=== PATIENT | female | born 1960 | race Caucasian/White ===

== ENCOUNTER → 2021-02-05 18:54 | Outpatient (CLI) | payer OTHER, SELFPAY ==
--- NOTE | 2021-02-05 19:01 | DI.MRI.S_ITS ---
PROCEDURE: MR SHOULDER RT WO CON INDICATIONS: PAIN IN LEFT SHOULDER CAPSULITIS OF RIGHT SHOULDER TECHNIQUE: Noncontrast oblique coronal T2 fast spin echo with fat saturation, oblique sagittal T1 spin echo and T2 fast spin echo with fat saturation, axial T1 spin echo and T2 fast spin echo with fat saturation through the shoulder. COMPARISON: None. FINDINGS: Image quality: Excellent. Rotator cuff: Moderate diffuse T2 signal elevation within the supraspinatus and infraspinatus tendons at the humeral insertion sites, indicating tendinopathy. Superimposed low-grade partial-thickness intrasubstance tearing of the anterior/mid supraspinatus tendon at the humeral insertion site. There is full-thickness tearing of the mid and posterior supraspinatus tendon the humeral insertion site extending to the musculotendinous junction, measuring roughly 15 mm anteroposterior. There is low-grade partial-thickness intrasubstance tearing of the anterior, mid, and posterior infraspinatus tendon at the humeral insertion site extending to the musculotendinous junction. Teres minor tendon is intact. Moderate T2 signal elevation within the subscapularis tendon at the humeral insertion site extending the musculotendinous junction is present, indicating tendinopathy. Superimposed low-grade partial-thickness articular surface and intrasubstance tears of the mid and upper subscapularis tendon at the humeral insertion site, extending to the musculotendinous junction. No significant rotator cuff atrophy. Bones and bursae: No bone marrow contusions or fractures. Moderate acromioclavicular joint degeneration. The acromion demonstrates conventional anatomy, without an os acromiale. No pathologic subacromial-subdeltoid or subcoracoid bursal fluid is present. Capsule and soft tissues: There is tearing of the posterosuperior and mid posterior labrum. The long head of the biceps tendon demonstrates normal location and morphology. The rotator interval appears normal, without fibrosis. The coracohumeral ligament is normal in thickness. IMPRESSION: 1. Acromioclavicular joint osteoarthritis. 2. Tendinopathy of the supraspinatus, infraspinatus, and subscapularis tendons. Superimposed partial-thickness and full-thickness tearing as described above. 3. Posterior labral tearing. Dictated by: Bib Segundo M.D. on 02/08/2021 at 8:41 Approved by: Bib Segundo M.D. on 02/08/2021 at 9:02
--- NOTE | 2021-02-05 19:02 | DI.MRI.S_ITS ---
PROCEDURE: MR SHOULDER LT WO CON INDICATIONS: PAIN IN LEFT SHOULDER CAPSULITIS OF RIGHT SHOULDER TECHNIQUE: Noncontrast oblique coronal T2 fast spin echo with fat saturation, oblique sagittal T1 spin echo and T2 fast spin echo with fat saturation, axial T1 spin echo and T2 fast spin echo with fat saturation through the shoulder. COMPARISON: [facility], MR, MR SHOULDER RT WO CON, 02/05/2021, 19:08. FINDINGS: Image quality: Excellent. Rotator cuff: There is focal full-thickness rupture involving anterior to mid fibers of distal supraspinatus with 5 millimeter medial retraction of torn tendon fibers and fluid-filled gap measures 9 millimeter in AP dimension. Tendinosis and moderate grade articular and bursal surface partial thickness tear involving rest of the supraspinatus tendon is seen extending to musculotendinous junction. There is tendinosis and low-grade articular surface partial-thickness tear involving distal infraspinatus at its insertion on the humeral head. Tendinosis and low-grade intrasubstance partial-thickness tear involving distal subscapularis is seen. Sagittal images demonstrate no significant muscle atrophy. Bones and bursae: No bone marrow contusions or fractures. There is moderate to severe glenohumeral joint osteoarthritis with significant joint space narrowing, extensive subchondral sclerosis and cyst formation and prominent there osteophyte formation. The glenohumeral joint osteoarthritic change muscle The acromion demonstrates conventional anatomy, without an os acromiale. There is moderate amount of subacromial subdeltoid bursal fluid. Capsule and soft tissues: Global signal abnormality throughout anterior, inferior and posterior labrum is seen suggestive of extensive labral tear. The glenohumeral ligaments are grossly intact. The long head of the biceps tendinosis is seen. The rotator interval appears normal, without fibrosis. The coracohumeral ligament is normal in thickness. IMPRESSION: 1. Tendinosis and moderate grade articular and bursal surface partial thickness tear involving distal supraspinatus with focal full-thickness rupture involving anterior to mid fibers of distal supraspinatus approximately 1.4 centimeter from its insertion on the humeral head with up to 5 millimeter medial retraction of torn tendon fibers and fluid-filled gap measures 9 millimeter in AP dimension. Tendinosis and low-grade articular surface partial-thickness tear involving distal infraspinatus. Tendinosis and low-grade intrasubstance partial-thickness tear involving distal subscapularis. 2. Moderate to severe glenohumeral joint osteoarthritis and mild acromioclavicular joint osteoarthritis. Moderate amount of subacromial subdeltoid bursal fluid. 3. Global signal abnormality throughout anterior, inferior and posterior labrum suggestive of extensive labral tear. 4. Proximal intra-articular portion of long head of biceps tendinosis. Dictated by: Jignesh Chiu M.D. on 02/08/2021 at 8:19 Approved by: Jignesh Chiu M.D. on 02/08/2021 at 8:35
== END ==
PROVIDERS: Referring Provider Physician Assistant Medical; Visit Provider Physician Assistant Medical
DX: M25.512 Pain in left shoulder (principal); M75.01 Adhesive capsulitis of right shoulder; M75.112 Incomplete rotator cuff tear or rupture of left shoulder, not specified as traumatic; M19.012 Primary osteoarthritis, left shoulder; M19.011 Primary osteoarthritis, right shoulder; M75.111 Incomplete rotator cuff tear or rupture of right shoulder, not specified as traumatic; S43.431A Superior glenoid labrum lesion of right shoulder, initial encounter
CPT/HCPCS: 73221

== ENCOUNTER → 2021-10-11 12:27 | Outpatient (CLI) | payer OTHER, SELFPAY ==
--- NOTE | 2021-10-11 13:05 | DI.CT.S_ITS ---
PROCEDURE: CT LUMBAR SPINE WO CON INDICATIONS: Radiculopathy, lumbar region TECHNIQUE: Noncontrast 3 mm thick sections acquired from the T12 level to the sacrum. Sagittal and coronal reformats were constructed. For radiation dose reduction, the following was used: automated exposure control. COMPARISON: [facility], MR, MR LUMBAR SPINE WITHOUT CONTRAST, 07/14/2021, 16:05. FINDINGS: Image quality: Excellent. Bones: There is normal bony alignment. No acute vertebral body compression fractures. No suspicious lytic or blastic bony lesions. No pars defects. T12-L1: Disc space narrowing without central or foraminal stenosis. L1-L2: Disc space narrowing and hypertrophic facet joints present. No central stenosis. No foraminal stenosis. L2-L3: Disc space narrowing with circumferential disc bulge and hypertrophic facet joints results in mild central stenosis and effacement of both lateral recesses. Moderate bilateral foraminal stenosis present. L3-L4: Disc space narrowing and circumferential disc bulge combined with hypertrophic facet joints resulting in moderate central stenosis. Severe bilateral foraminal stenosis present. L4-L5: Disc space narrowing and circumferential disc bulge with hypertrophic facet joints and ligamentum flavum laxity results in moderate central stenosis. Severe bilateral foraminal stenosis present. L5-S1: Disc space narrowing and circumferential disc bulge noted without central stenosis. Moderate left and severe right foraminal stenosis present. Soft tissues: No retroperitoneal masses or hematomas. Visualized aorta is normal in caliber. Cholecystectomy IMPRESSION: Multilevel degenerative disc disease and arthropathy results in varying degrees of central and foraminal stenosis including moderate central and bilateral severe stenosis at L3-4 and L4-5. Approved by: Tahir Marie M.D. on 10/12/2021 at 18:24
== END ==
PROVIDERS: PCP Physician Assistant Medical; Referring Provider Orthopaedic Surgery Orthopaedic Surgery of the Spine; Visit Provider Orthopaedic Surgery Orthopaedic Surgery of the Spine
DX: M51.16 Intervertebral disc disorders with radiculopathy, lumbar region (principal); M47.26 Other spondylosis with radiculopathy, lumbar region; M48.061 Spinal stenosis, lumbar region without neurogenic claudication
CPT/HCPCS: 72131

== ENCOUNTER → 2021-11-05 11:55 | Outpatient (CLI) | payer OTHER, SELFPAY ==
[2021-11-05 13:02] LABS: COVID19 -Nasal RAPID Negative (Negative)
== END ==
PROVIDERS: PCP Physician Assistant Medical; Visit Provider Physician Assistant
DX: Z20.822 Contact with and (suspected) exposure to COVID-19 (principal)
CPT/HCPCS: 87635

== ENCOUNTER 2021-11-08 10:59 | Observation (INO) | payer OTHER, SELFPAY ==
[2021-10-27 08:44] VITALS: BMI 24.2
[2021-11-08] VITALS (14 sets, daily range): BP systolic 134–174; BP diastolic 82–104; PULSE 80–111; RESP 10–16; TEMP 36.3–37.3; O2SAT 96–100; BMI 24.2
[2021-11-08] MEDS: ACETAMINOPHEN 325 MG TABLET 975 MG PO (11:47)
[2021-11-08] MEDS: LACTATED RINGERS 1,000 ML 42 ML IV ×3 (11:56→16:11)
--- NOTE | 2021-11-08 12:41 | SUR.OPER ---
Prone on spine table, head in foam head support, padded chest and pelvic supports, gel pad at knees, lower legs supported by pillows; nipples, genitalia and toes free of pressure, arms secured on foam padded arm boards at <90 degrees abduction. Tape over blanket at thigh secured to table.
--- NOTE | 2021-11-08 13:10 | PM.PREOP ---
Pre-operative Note COVID-19 COVID-19 status: Negative Result date/Date tested (Pos, Neg/Pending): 11/07/21 Interval Note History & Physical reviewed/Exam performed by Physician: Yes Changes to H&P: No
[2021-11-08] MEDS: CEFAZOLIN 2 GM/20 ML SYRINGE IV (13:55)
[2021-11-08] MEDS: BUPIVACAINE 0.25% (PF) 30 ML, EPINEPHrine 0.3 MG INJ (14:06)
[2021-11-08] MEDS: BUPIVACAINE LIPOSOME 266 MG/20 ML VIAL INJ (14:07)
--- NOTE | 2021-11-08 16:59 | DI.RAD.S_ITS ---
PROCEDURE: XR LUMBAR SPINE 2-3V INDICATIONS: L4-5, L5-S1 TLIF/ROBOT TECHNIQUE: Low resolution intraoperative fluoroscopic spot film was obtained in the lower lumbar spine. COMPARISON: None. FINDINGS: Low resolution imaging the lower lumbar spine shows L4-5 and L5-S1 discectomy and fusion with fusion cage and posterior lai and screw instrumentation in good position. IMPRESSION: Fluoroscopic guidance Approved by: Tahir Marie M.D. on 11/08/2021 at 16:13
--- NOTE | 2021-11-08 17:17 | PM.OP.1 ---
Operative Date/Time/Diagnoses Date of procedure: 11/08/21 Time of procedure: 13:30 Pre-op diagnosis: 1. L4-5, L5-S1 spinal stenosis with radiculopathy 2. L4-5, L5-S1 spondylosis with radiculopathy Post-op diagnosis: same Procedure & Clinicians Procedure: 1. L4-5, L5-S1 Postero-lateral and posterior interbody fusion 2. L4-5, L5-S1 interbody cage placement. 3. L4-5, L5-S1 decompressive laminectomy with bilateral facetecomies 4. L4-5, L5-S1 Posterior segmental instrumentation 5. [place] of bone marrow from iliac crest 6. Utilization of microsurgical technique and operating microscope 7. Robotic assisted navigation surgery Same procedure as scheduled: Yes Indications: Patient has been having chronic back pain and worsening lumbar radiculopathy. Patient failed multiple conservative management with worsening pain weakness and numbness in her lower extremity. Patient has been having difficulty performing activity of daily living. After discussing risks benefits of treatment options, patient elected proceed with surgery. Surgeon: Sandra Holloway Director Of Community Education: Elie Hoyt Click Yes if Unassisted: No Anesthesia Type: General Operative Notes Closure Type: primary Specimen(s): none sent Prosthetic devices, grafts, tissues, transplants, or devices: Globus CREO MIS screws, Rise cages Applied: catheter Estimated Blood Loss (mL): 100 Blood products transfused: none Procedure in detail: Patient was seen in the preoperative area. Risks and benefits of the surgery was discussed with the patient. Informed consent was obtained from the patient and placed in the chart. Surgical site was marked. Patient was taken to the operative room. General anesthesia was administered. Prophylactic antibiotic was given to the patient less than 30 min before the incision was made. Patient was placed into a prone position on the [place] table. Patient's back was then prepped and draped in the sterile fashion. Time-out was performed at this time. After patient was prepped and draped, patient's PSIS was palpated and marked bilaterally. Small 1 cm incision was made over the PSIS for placement of the reference probes. Two trocar was placed into the PSIS 1 on each side. The reference probe was attached to the trocar of the reference apparatus. At this time the C-arm imaging was used to confirm AP and lateral of L4-L5, L5-S1 vertebrae and merged the C-arm imaging using the Zemanta robotic navigation system with the CT of the lumbar spine. After successful merging was completed and confirmed, skin marker was used to eric out the skin incision using the Zemanta robotic arm. Bilateral incision was made at this time. Pre templated trajectory was used and guided using the Zemanta robotic navigation system for bilateral L4, L5, S1 pedicle screw placement. This was done by using the robotic arm to guide the high-speed bur to make a cortical entry point. Next a drill was placed also using the robotic arm and guided using the navigation system drilling partially through bilateral L4, L5 and S1 pedicles. Next L4, L5, S1 pedicle screws it was pre templated and measured was placed onto the power coal tram driver and inserted into the pedicles bilaterally. After all 6 screws were placed C-arm imaging was taken of both AP and lateral to confirm the placement. Excellent placement of the screws were confirmed and a matched precisely with the pre planned screw placement using the navigation system. MARs retractor was inserted using AutekBioivation guidence. Globus MARS retractors was placed inside the incision and docked onto the L4 and L5 lamina. Using microsurgical technique and operating microscope, a L4, L5 laminectomy and L4-5, L5-S1 facetectomy was performed using a Kerrison rongeur. Patient was found have severe lateral recess and neural foramen stenosis which was fully decompressed after the laminectomy facetectomy. More than 75% of the facets were removed during the process of decompression rendering L4-5, L5-S1 level grossly unstable and required a fusion procedure at the same time. The disc space at L4-5, L5-S1 was identified, and a total diskectomy was performed at L4-5, L5-S1 level. The endplates were decorticated using a rasp and shaver. The total diskectomy and decortication was performed at L4-5, L5-S1 level in order to to accomplish a L4-5, L5-S1 fusion. The local bone from the laminectomy and facetectomy was saved for local bone grafting. After the total diskectomy and decortication was completed, Trifecta bone graft material was combined with local bone that was harvested earlier. At this time, a separate skin is incision was made over the iliac crest. A Jamshidi needle was inserted into the iliac crest through a separate skin incision. 5 cc of bone marrow aspiration was obtained through the separate skin incision using a Jamshidi needle from the iliac crest. The bone marrow aspiration was combined with local bone and the Trifecta bone grafting material. The bone grafting material was placed into the L4-5, L5-S1 interbody space along with a expandable cage. The cage was expanded to its maximum height using the torque limiting screwdriver. The disc preparation as well as the cage insertion were also performed under navigation guidance. After the cage was placed, AP and lateral C-arm imaging was taken to confirm placement of the cage and excellent position was confirmed. Globus MARS retractor was inserted and docked onto the L4-5, L5-S1 posterolateral gutter on the right side. Using the power drill, posterior-lateral decortication was performed at L4-5, L5-S1 level until bleeding cortical bone was identified. The remaining bone grafting material was placed into the L4-5, L5-S1 posterior lateral gutter he order to accomplish posterolateral fusion at the L4-5, L5-S1 level. At this time the tulips were attached to the L4, L5, S1 pedicle screw shanks. After measuring the length of the rods, they were inserted into the tulips of the pedicle screws and locked in place using locking caps and torque limiting screwdriver bilaterally. Total 6 caps and 2 titanium rods was used in order to complete the posterior instrumentation construct. After all the hardware was placed, and confirmed with AP and lateral C-arm imaging, the wound was then irrigated with sterile normal saline and packed with Ray-Stanley gauze for 3 min to accomplish hemostasis. After the gauze was removed the deep fascia was closed with #1 Vicryl suture. The subcutaneous layer was closed with 2-0 Vicryl. The skin was closed with skin brant. Patient tolerated the procedure well. There were no complications. Neuro monitoring system was used to monitor patient's neurologic status throughout entire procedure. There was no disturbance of the neural monitoring signals throughout the case. Complications: none Post-operative Condition: stable Disposition: PACU Plan for aftercare: Admit to inpatient hospital
[2021-11-08] MEDS: fentaNYL 100 MCG/2 ML INJ IV ×2 (17:31→17:40)
[2021-11-08] MEDS: OXYCODONE IR 5 MG TABLET PO (17:49)
[2021-11-08] MEDS: METOPROLOL TARTRATE 5 MG/5 ML INJ 1 MG IV (18:01)
--- NOTE | 2021-11-08 18:43 | SUR.PHASEI ---
Pacu: 1820-Patient meets criteria for transfer. vss. pain eased. no [place]. tolerating sips of fluids. lumbar dressing cdi. no drainage/hematoma around sites. csm unchanged to ble. iv converted to saline lock for transport. report given to Tiffanie DAVENPORT by phone & questions answered. to floor at 1830 by bed with oxygen at 2l nc. 4 bags of personal belongings to room with patient. 1834-in room 210, and care transfered to Tiffanie DAVENPORT after settled.
[2021-11-08] MEDS: MORPHINE 2 MG/ML INJ IV ×3 (18:54→23:39)
[2021-11-08] MEDS: SODIUM CHLORIDE 0.9% 1,000 ML 100 ML IV (19:05)
[2021-11-08] MEDS: ACETAMINOPHEN 325 MG TABLET 650 MG PO (19:06)
--- NOTE | 2021-11-08 19:43 | PC.NURSE ---
Pt arrives to Unit in room 210 at 1840 this evening, A&OX3. VSS, low grade temp 99.1,on 2L SBP 150's to 160's. Pt c/o pain to back 6/10 medicated with PRN morphine, tylenol and vesteril. notified for clarification of metoprolol. Dressing to back C/D/I. NS at 100 ml/hr. Patient settled in room. Endorsed report to oncoming RN.
[2021-11-08] MEDS: SENNOSIDES 8.6 MG TABLET 17.2 MG PO (20:20)
[2021-11-08] MEDS: DOCUSATE 100 MG CAPSULE PO (20:20)
[2021-11-08] MEDS: OXYCODONE IR 5 MG TABLET 10 MG PO (20:24)
[2021-11-08] MEDS: TIZANIDINE 4 MG TABLET PO (20:24)
[2021-11-08] MEDS: CEFAZOLIN 1 GM VIAL IV (21:33)
--- NOTE | 2021-11-08 22:38 | PC.NURSE ---
Patient is alert and oriented. Breath sounds CTA; on oxygen at 2L/min per NC at shift change and had sat of 99% so decreased to 1L/min. HRR but has elevated BP of 166/86 at shift change and 160/91 at time of vitals. Denied nausea. BT hypoactive. Indwelling catheter is patent; urine is clear yellow. Is able to log roll/turn with assistance. Not out of bed as yet since just returned to floor at 1840. Dressing to back is CDI. Complained of 7/10 pain and was medicated with oxycodone + tizanidine at 2023 and then received Morphine at 2126 and is currently asleep. Did, also, apply ice pack for comfort. Wearing bilateral foot SCD's. Provided vegetable soup to eat and tolerated well. Fall risk score is high and bed alarm is activated.
[2021-11-09] VITALS (7 sets, daily range): BP systolic 98–136; BP diastolic 51–72; PULSE 76–90; RESP 16–18; TEMP 36.6–38.1; O2SAT 94–98
[2021-11-09] MEDS: MORPHINE 2 MG/ML INJ IV ×2 (04:07→20:15)
[2021-11-09] MEDS: SODIUM CHLORIDE 0.9% 1,000 ML 100 ML IV (04:10)
[2021-11-09] MEDS: OXYCODONE IR 5 MG TABLET 10 MG PO ×5 (05:45→21:46)
[2021-11-09] MEDS: CEFAZOLIN 1 GM VIAL IV (05:46)
[2021-11-09 05:55] LABS: Hematocrit 35.5 % (36-46); Hemoglobin 11.9 g/dL (12.0-16.0)
--- NOTE | 2021-11-09 07:49 | PM.PNPO.1 ---
Subjective Subjective Date Patient Seen: 11/09/21 Time Patient Seen: 07:49 Interval history: Pain is moderate. Denies fever or chills. No nausea or vomiting. Exam Vital Signs (past 8 hours): - 11/09/21 01:34 11/09/21 04:29 Temperature 97.8 F 98 F Pulse Rate 76 85 Respiratory Rate 17 17 Blood Pressure 98/54 L 115/72 Pulse Oximetry 96 97 Oxygen Delivery Method Nasal Cannula Oxygen Flow Rate 0 Narrative Exam Narrative: 61-year-old female resting comfortably in bed in no apparent distress. Sensation is grossly intact bilateral lower extremities. Motor functions intact bilateral lower extremities. Both legs are warm and dry. Objective Labs Result Diagrams: 11/09/21 05:30 Labs: Laboratory Results - last 24 hr 11/09/21 05:30 Hgb 11.9 L Hct 35.5 L PFSH Medical History Borderline high blood pressure COPD (chronic obstructive pulmonary disease) Fecal incontinence Lumbar disc disease with radiculopathy Right foot drop Sciatica Spinal stenosis Surgical History History of bilateral tubal ligation History of hysterectomy for benign disease Hx of appendectomy (~2016) Hx of cholecystectomy (05/2021) Social History household members: family Smoking Status: Former smoker alcohol intake: current Assessment & Plan Post-op Postoperative Procedures: Procedures Operation Date: 11/08/21 12:15 Actual Procedure Side Surgeon p L4-5, L5-S1 TLIF with posterior instrumentation -Robot Not Applicable Sandra Holloway MD Postoperative day: 1 Postoperative status: doing well Postoperative plan narrative: Mobilize with physical therapy, limit bending, lifting, twisting Multimodal pain management Possible discharge home this afternoon or tomorrow pending physical therapy Quality VTE Deep Vein Thrombosis/Pulmonary Embolism Present on Admission: No
[2021-11-09] MEDS: DOCUSATE 100 MG CAPSULE PO ×2 (08:43→21:46)
--- NOTE | 2021-11-09 09:30 | PT.IIE ---
Current Diagnoses Foot drop, right foot (11/08/21) Spinal stenosis, lumbar region without neurogenic claudication (11/08/21) Surgery Performed Operation Date: 11/08/21 12:15 Actual Procedures p L4-5, L5-S1 TLIF with posterior instrumentation -Robot(Not Applicable) - Sandra Holloway MD Medical History (Last Reviewed 11/09/21 @ 07:50 by Elie Hoyt PA-C) Borderline high blood pressure COPD (chronic obstructive pulmonary disease) Fecal incontinence Lumbar disc disease with radiculopathy Right foot drop Sciatica Spinal stenosis Physical Therapy Inpatient Evaluation/Re-Eval M1 PT/OT-IP Prior Functional Status Start: 11/09/21 11:42 Freq: NEEDED Status: Active Protocol: Document 11/09/21 09:30 AB (Rec: 11/09/21 11:54 AB [id number]) Medical Review Prior Functional Status Medical History Reviewed Yes Communication able to make needs known Mobility and Gait pt stated that she is independent with all mobilities and ambulation without AD Social History Household Members family Living Arrangements House Number of Floors (Floors) One Floor Number of Stairs To Enter/Railing? 1 step to enter Home Environment Walk in Shower,Tub/Shower Home Equipment Front Wheel Walker,Raised Toilet Seat Without Armrests, Hand Held Shower Additional Social History Comment pt has her sister to assist her at home when needed but will not be able to assist her much if she needs physical assist. stated that her sister has CA and just had surgery and tx. pt has an adjustable bed but plans to sleep on her antigravity chair for now M2 PT-IP Current Condition Start: 11/09/21 11:42 Freq: NEEDED Status: Active Protocol: Document 11/09/21 09:30 AB (Rec: 11/09/21 11:54 AB [id number]) Physical Therapy Current Condition Current Condition Evaluation Date 11/09/21 Treatment Diagnosis s/p L4-5,L5S1 TLIF; difficulty in walking Onset Date 11/08/21 M3 PT-IP Subjective Start: 11/09/21 11:42 Freq: NEEDED Status: Active Protocol: Document 11/09/21 09:30 AB (Rec: 11/09/21 11:54 AB [id number]) Subjective Physical Therapy Visit Type Type Initial Evaluation Visit Start Time 09:30 Visit Stop Time 10:15 Total Visit Minutes 45 Number of DEPUTY MANAGER Visits 0 Physical Therapy Visit Comments Patient Comments c/o increase back pain but agreed to do PT Therapy Pain Assessment Pain When Pain Assessed At Rest Pain Present Pain Present Pain Reported Location Lower Back Intensity 8 Pain Management Techniques Apply Cold,Distraction, Modification of Treatment,Re- positioning,Timing of Activity with Medications M4 PT-IP Mobility and Gait Start: 11/09/21 11:42 Freq: NEEDED Status: Active Protocol: Document 11/09/21 09:30 AB (Rec: 11/09/21 11:54 AB [email or web address]) PT-Bed Mobility Assessment Rolling Type of Rolling Log Rolling Level of Assist Standby Assistance Supine to Sit Supine to Sit Standby Assistance Sit to Supine Sit to Supine Minimal Assistance PT-Transfer Assessment Sit to and From Stand Sit to and from Stand Moderate Assistance,1 Person Assistance,Use of Upper Extremities Equipment Transfer Assistive Device Gait Belt,Front Wheeled Walker Orthotic/Prosthetic Devices or Brace: No Comments Mobility Comments educated pt on back precautions and log roll bed mobility. completed supine to sit SBA and cues. required increase time to complete. able to sit on EOB SBA. completed sit to stand mod A and cues and ambulated using FWW mod A ~25 ft. presents with decrease step elevation and heavy UE use on FWW during standing and ambulation. pt requested to go back to bed. completed sit to supine min A with LE elevation to bed. positioned in bed. call light and table placed within reach . Gait Assessment Gait Gait Assistance Required: Moderate Assistance,1 Person Assist Distance (Feet) 25 Able to Maintain Weight Bearing Status Yes During Gait Assistive Devices Assistive Device Gait Belt,Front Wheeled Walker Orthotic/Prosthetic Devices or Brace: No Gait Deviations General Gait Pattern Antalgic,Decreased Stride Length,Decreased Feet Clearance,Step-to Gait Factors Limiting Gait Function Factors Limiting Gait Function Decreased Activity Tolerance, Decreased Strength,Limited Range of Motion,Pain,Poor Balance,Poor Safety Awareness PT-Balance Assessment Sitting Balance and Reactions Static Sitting Balance Ability Good Dynamic Sitting Balance Ability Good Standing Balance and Reactions Static Standing Balance Ability Fair Dynamic Standing Balance Ability Poor Device Used FWW M5 PT-IP Objective Assessments Start: 11/09/21 11:42 Freq: NEEDED Status: Active Protocol: Document 11/09/21 09:30 AB (Rec: 11/09/21 11:54 AB [email or web address]) Orientation Orientation/Cognition Level of Alertness Alert Orientation Name,Situation Language Function Ability No Deficits Noted Safety Awareness Decreased Safety Awareness Memory Description Short Term Impaired Gross Range of Motion Lower Extremity ROM Assessment Within Functional Limits Strength Lower Extremity Strength Hip 4-/5 Knee 4+/5 Coordination Assessment Gross Coordination Gross Coordination WNL Sensation Assessment Sensation Gross Sensation WNL Muscle Tone Muscle Tone WNL Yes M6 PT-IP Treatment Start: 11/09/21 11:42 Freq: NEEDED Status: Active Protocol: Document 11/09/21 09:30 AB (Rec: 11/09/21 11:54 AB [id number]) Physical Therapy Treatment Education Education Provided Precautions,Weight Bearing Status,Post-Op Packet,Safety M7 PT-IP Assessment and Plan Start: 11/09/21 11:42 Freq: NEEDED Status: Active Protocol: Document 11/09/21 09:30 AB (Rec: 11/09/21 11:54 AB [email or web address]) PT Summary Assessment and Plan Potential Rehabilitation Potential Good Status of Condition at Evaluation Evolving Summary Impairments Pain,ROM,Strength,Balance, Coordination,Sensation,Tone, Cognition,Bed Mobility, Transfers,Gait,Activity Tolerance Assessment Summary pt c/o increase back pain affecting mobility and requiring mod A with sit to stand and ambulation at this time. pt plans to go home and stated that her sister will assist but will be limited to the amount of assistance that sister can provide due to sister's own medical issues. will continue to assess progress and conduct caregiver training when appropriate as well as stair climbing training. Goals Bed Mobility Goal Independent Transfer Goal Independent,Front Wheeled Walker Gait Goal Independent,Front Wheel Walker Gait Distance 250 Other Goals up/down 1 step using FWW SBA Days to Meet Goals 5 Frequency of Treatment Frequency Of Treatment Twice a Day Treatment Plan Physical Therapy Treatment Plan Bed Mobility Training,Transfer Training,Gait Training, Therapeutic Exercise,Balance Retraining,Post Op Education, Discharge Planning,Hot or Cold Pack,Neuromuscular Re-ed, Coordination Retraining,Manual Therapy Precautions Lumbar Precautions Log Roll,No Twisting,Limit Bending,Lifting Restriction of 10 lbs,Gait Belt above Incisional Area Recommendations To Nursing Amount of Assist Needed 1 Person Assist Discharge Recommendations PT Discharge Recommendations Home with Assistance,Home Health Transportation Needs at Discharge Private Vehicle
[2021-11-09] MEDS: TIZANIDINE 4 MG TABLET PO (09:40)
[2021-11-09] MEDS: hydrOXYzine pamoate 25 MG CAPSULE PO ×4 (09:41→23:46)
[2021-11-09] MEDS: ACETAMINOPHEN 325 MG TABLET 650 MG PO (09:41)
--- NOTE | 2021-11-09 12:31 | OT.IPNOTE ---
Able to get prior level of history and education for ADL needs, however pt not wanting to get up at this time. Pt preferring to focus on PT needs today and begin OT tomorrow. NO charge.
--- NOTE | 2021-11-09 14:40 | PT.IPTN ---
Current Diagnoses Foot drop, right foot (11/08/21) Spinal stenosis, lumbar region without neurogenic claudication (11/08/21) Surgery Performed Operation Date: 11/08/21 12:15 Actual Procedures p L4-5, L5-S1 TLIF with posterior instrumentation -Robot(Not Applicable) - Sandra Holloway MD Physical Therapy Treatment Note M2 PT-IP Current Condition Start: 11/09/21 11:42 Freq: NEEDED Status: Active Protocol: Document 11/09/21 09:30 AB (Rec: 11/09/21 11:54 AB [id number]) Physical Therapy Current Condition Current Condition Evaluation Date 11/09/21 Treatment Diagnosis s/p L4-5,L5S1 TLIF; difficulty in walking Onset Date 11/08/21 M3 PT-IP Subjective Start: 11/09/21 11:42 Freq: NEEDED Status: Active Protocol: Document 11/09/21 14:40 AB (Rec: 11/09/21 15:18 AB [email or web address]) Subjective Physical Therapy Visit Type Type Treatment Note Visit Start Time 14:40 Visit Stop Time 15:01 Total Visit Minutes 21 Number of DIVE SUPERVISOR Visits 0 Physical Therapy Visit Comments Patient Comments agreeable to do PT M4 PT-IP Mobility and Gait Start: 11/09/21 11:42 Freq: NEEDED Status: Active Protocol: Document 11/09/21 14:40 AB (Rec: 11/09/21 15:18 AB [email or web address]) PT-Bed Mobility Assessment Supine to Sit Supine to Sit Standby Assistance,Bedrails PT-Transfer Assessment Sit to and From Stand Sit to and from Stand Minimal Assistance,1 Person Assistance,Use of Upper Extremities Equipment Transfer Assistive Device Gait Belt,Front Wheeled Walker Orthotic/Prosthetic Devices or Brace: No Transfers Transfer Destination Chair Transfer Technique ambulated Transfer Ability Level of Assist Minimal Assistance,1 Person Assistance,Use of Upper Extremities Comments Mobility Comments checked on pt earlier this afternoon and has BP of 88/49. informed nurse. checked back on pt again. BP in usupine: 92/56. pt stated that she want to move a little . BP monitored. pt completed supine to sit log roll SBA using bed rail to assist. pt was able to sit on EOB SBA. No c/o dizziness/ lightheadedness. BP sittin/52. tolerated ~ 2 min of sitting and BP checked again: 104/56. completed sit to stand min A and ambulated in room using FWW min A and cues ~ 25 ft. pt agreed to sit up on chair. positioned on chair . No c/o dizziness/ lightheadedness during and after ambulation. BP checked after ambulation sitting on chair: 102/48. call light and table placed within reach. Gait Assessment Gait Gait Assistance Required: Minimum Assistance Distance (Feet) 25 Able to Maintain Weight Bearing Status Yes During Gait Assistive Devices Assistive Device Gait Belt,Front Wheeled Walker Orthotic/Prosthetic Devices or Brace: No Gait Deviations General Gait Pattern Decreased Stride Length, Decreased Feet Clearance,Step- to Gait Factors Limiting Gait Function Factors Limiting Gait Function Decreased Activity Tolerance, Decreased Strength,Limited Range of Motion,Pain,Poor Balance Comments Gait Comments pls refer to mobility section for details M5 PT-IP Objective Assessments Start: 11/09/21 11:42 Freq: NEEDED Status: Active Protocol: Document 11/09/21 09:30 AB (Rec: 11/09/21 11:54 AB [email or web address]) Orientation Orientation/Cognition Level of Alertness Alert Orientation Name,Situation Language Function Ability No Deficits Noted Safety Awareness Decreased Safety Awareness Memory Description Short Term Impaired Gross Range of Motion Lower Extremity ROM Assessment Within Functional Limits Strength Lower Extremity Strength Hip 4-/5 Knee 4+/5 Coordination Assessment Gross Coordination Gross Coordination WNL Sensation Assessment Sensation Gross Sensation WNL Muscle Tone Muscle Tone WNL Yes M6 PT-IP Treatment Start: 11/09/21 11:42 Freq: NEEDED Status: Active Protocol: Document 11/09/21 14:40 AB (Rec: 11/09/21 15:18 AB [email or web address]) Physical Therapy Treatment Education Education Provided Precautions,Safety M7 PT-IP Assessment and Plan Start: 11/09/21 11:42 Freq: NEEDED Status: Active Protocol: Document 11/09/21 14:40 AB (Rec: 11/09/21 15:18 AB [email or web address]) PT Summary Assessment and Plan Potential Rehabilitation Potential Fair Summary Impairments Pain,ROM,Strength,Balance, Coordination,Sensation,Tone, Cognition,Bed Mobility, Transfers,Gait,Activity Tolerance Progress Towards Goals Slow Progress due to Activity Tolerance Assessment Summary pt improving slowly but has low BP this afternoon. Able to ambulate using FWW min A 25 ft. pt plans to go home and her sister will assist her but not much due to sister's medical issues. pt needs to be more independent with mobility than current level. will continue to assess. will conduct caregiver training when appropriate. Stair training also needs to be completed prior to d/c if pt goes home. Goals Bed Mobility Goal Independent Transfer Goal Independent,Front Wheeled Walker Gait Goal Independent,Front Wheel Walker Gait Distance 250 Other Goals up/down 1 step using FWW SBA Days to Meet Goals 5 Frequency of Treatment Frequency Of Treatment Twice a Day Treatment Plan Physical Therapy Treatment Plan Bed Mobility Training,Transfer Training,Gait Training, Therapeutic Exercise,Balance Retraining,Post Op Education, Discharge Planning,Hot or Cold Pack,Neuromuscular Re-ed, Coordination Retraining,Manual Therapy Precautions Lumbar Precautions Log Roll,No Twisting,Limit Bending,Lifting Restriction of 10 lbs,Gait Belt above Incisional Area Recommendations To Nursing Amount of Assist Needed 1 Person Assist Discharge Recommendations PT Discharge Recommendations Home with Assistance,Home Health,SNF Rehab,Home vs SNF Transportation Needs at Discharge Private Vehicle
--- NOTE | 2021-11-09 16:13 | CM.DPC ---
DCP/Assessment: Reviewed chart. Patient is a 61yr old female admitted [facility] spine [facility]. PCP is Kallie Araiza. Primary payor is 1)[facility]. Met with patient explained role. Patient reports that she hopes to d/c home tomorrow. Patient being seen by both PT and OT. Patient does report that she has walker for home if needed. At this time patient does not anticipate any d/c planning needs. Patient resides with her sister in [place]. P: Anticipate home when stable. CM team to continue to follow if needs arise. [facility] Discharge Planning/Care Management CM Discharge Assessment Start: 11/09/21 16:06 Freq: Status: Active Protocol: Document 11/09/21 16:06 [facility] (Rec: 11/09/21 16:13 [facility] [id number]) Discharge Planning Assessment Assigned Silk Opener MARY Cortez Contact Information Jennifer Dacosta (sister) # [phone] Advance Directives? Yes Advance Directives on File No History Provided By Patient,Medical Record Prior Living Arrangements House Household Members family Type of transporation used prior to Drives own vehicle admit Independent with ADL's Yes Is patient alert and oriented? Yes Caregiver for Another No DME Already Rented / Owned FWW / Walker Barriers to Discharge No Discharge Plan Home Transportation Arrangement Sister to provide transport. Whiteboard Updated in Patient Room with Yes name and ext. # of Silk Opener Review Status In Process Next Review Type Continued Stay Review Pre-Anesthesia Assessment Start: 10/27/21 08:44 Freq: Status: Complete Protocol: Document 10/27/21 08:44 [facility] (Rec: 10/27/21 08:57 CAB [id number]) Pre-Anesthesia Assessment Patient Information Reviewed Via Phone Assessment Assessment Completed With Patient Comment Labs/EKG done @ [facility] per pt, not available, needs to schedule COVID Primary Care Provider Kallie Araiza Seen Specialist in Last 12 Months Yes Specialist Seen [facility],Orthopedist Primary Language Montenegrin Card Painter Required No Height 167.64 cm Weight 68.039 kg Body Mass Index (BMI) 24.2 Hearing Ability Normal Visual Assist Glasses Dentition Type Teeth, Natural Present,Partial - Lower,Partial- Upper Barriers to Learning None Hx Anesthesia Reactions No Hx Family Anesthesia Reaction No Hx Malignant Hyperthermia No Hx Blood Transfusions No Anesthesia Review Requested No alcohol intake current alcohol intake frequency a few times a week Smoking Status Former smoker Tobacco type e-cigarettes how long ago did patient quit smoking Quit cigarettes, currently vapes Substance Use Type marijuana Comment Advised not to smoke marijuana 24 hours prior Pain Present Pain Reported Musculoskeletal Symptoms Abnormal Gait,Back Pain, Difficulty Walking,Joint Pain, Neck Pain,Numbness,Radiating Pain into Limb,Tingling History of Falling (Recent or History of Yes ) Patient is completely paralyzed or No completely immobile Mental Status Oriented to own ability Is patient on oxygen? No Does patient have MORGAN/SOB No Hx Sleep Apnea No Currently Taking a Beta Grover No Can You Climb a Flight of Stairs Without Yes SOB Hx Chest Pain No Hx SOB No Hx Syncope or Dizziness No Anti-Coagulant Therapy No Has a Moisture Tester No Cardiac Testing No Hx Pacemaker/ICD No Pacemaker Rep Required? No Cardiac Clearance Received Not Applicable Diet Type At Home Regular,Low Carb dysphagia No Gastrointestinal Symptoms Fecal Incontinence Bladder Pattern Incontinent Urinary Catheter Present No Hx Urinary Self Catheterization No Diabetes No Patient No Lactating No Hx Drug Resistant Organism No Presence of External or Internal Medical No Devices Have you had any close contact with No someone diagnosed with COVID-19? Received a COVID vaccine? Yes Received all doses? Yes Marital Status / Lives With family Prior Living Arrangements House Number of Floors (Floors) One Floor Support System Sibling(s) Does the Patient Have Assistance After Yes: Lives with sister who Surgery will care for her at [place] Patient Discharge Plan Description Return Home Comment Pt advised 2 day length of stay per surgeon Feels Safe in Current Environment Yes Been Physically Hurt or Threatened By a No Person in Current Environment Do you have thoughts of harming yourself None or others? Are you currently considering suicide? No Do you have a plan to hurt yourself or No Plan others? Do You Have Any Spiritual Beliefs That No May Affect Your HC Choices? Do You Have Any Cultural Practices That No May Affect Your HC Choices? Comment Keith Who Can We Speak to About Patient's Care Family, friends Identifying Code for Release of Patient Declines to issue Information Health Care Proxy/Next of Kin Jennifer (sister) Health Care Proxy Emergency Contact Name Jennifer (sister) Emergency Contact Advance Directives? No Power of Pediatric Psychologist No PAC Instructions Durable medical equipment, Medications to take/avoid, Nasal antibiotic,No ETOH/ petroleum product on skin DOS, NPO,Post-op transportation,Pre -surgical wash,Sensory aids, Sturdy shoes/comfortable clothes,Do not bring valuables and remove jewelry
[2021-11-09] MEDS: SENNOSIDES 8.6 MG TABLET 17.2 MG PO (21:46)
[2021-11-10 00:18] VITALS: BP 108/57; PULSE 84; RESP 17; TEMP 37.3; O2SAT 93
[2021-11-10] MEDS: OXYCODONE IR 5 MG TABLET 10 MG PO ×4 (02:43→12:12)
[2021-11-10 05:53] VITALS: BP 123/64; PULSE 83; RESP 18; TEMP 37.4; O2SAT 97
[2021-11-10 07:37] VITALS: BP 118/71; PULSE 96; RESP 16; TEMP 37.9; O2SAT 95
[2021-11-10] MEDS: DOCUSATE 100 MG CAPSULE PO (09:12)
--- NOTE | 2021-11-10 10:08 | PT.IPTN ---
Current Diagnoses Foot drop, right foot (11/08/21) Spinal stenosis, lumbar region without neurogenic claudication (11/08/21) Surgery Performed Operation Date: 11/08/21 12:15 Actual Procedures p L4-5, L5-S1 TLIF with posterior instrumentation -Robot(Not Applicable) - Sandra Holloway MD Physical Therapy Treatment Note M2 PT-IP Current Condition Start: 11/09/21 11:42 Freq: NEEDED Status: Discharge Protocol: Document 11/10/21 09:43 SP (Rec: 11/10/21 18:29 SP [id number]) Physical Therapy Current Condition Current Condition Evaluation Date 11/09/21 Treatment Diagnosis s/p L4-5,L5S1 TLIF; difficulty in walking Onset Date 11/08/21 M3 PT-IP Subjective Start: 11/09/21 11:42 Freq: NEEDED Status: Discharge Protocol: Document 11/10/21 09:43 SP (Rec: 11/10/21 18:29 SP [id number]) Subjective Physical Therapy Visit Type Type Treatment Note Visit Start Time 09:43 Visit Stop Time 10:08 Total Visit Minutes 25 Notes Vitals taken during tx: supine: 133/ 71, HR 98 SaO2 95 % on RA. Number of PATIENT REGISTRATION REP Visits 1 Physical Therapy Visit Comments Patient Comments agreeable to do PT and assessing 1 PF step for home enterance. Patient Goals return home with sister to assist her. Therapy Pain Assessment Pain When Pain Assessed During Mobility Pain Present Pain Present Pain Reported Location Lower Back Intensity 6 Scale Used 5.5-6/10 at rest, 7/10 post mobiltiy, premedicated. Description With Movement Pain Behaviors Facial Grimacing Pain Management Techniques Distraction,Modification of Treatment,Re-positioning, Timing of Activity with Medications M4 PT-IP Mobility and Gait Start: 11/09/21 11:42 Freq: NEEDED Status: Discharge Protocol: Document 11/10/21 09:43 SP (Rec: 11/10/21 18:29 SP [id number]) PT-Bed Mobility Assessment Rolling Type of Rolling Log Rolling Level of Assist Standby Assistance Supine to Sit Supine to Sit Standby Assistance,Bedrails Scooting Scooting to Edge of Bed Standby Assistance PT-Transfer Assessment Sit to and From Stand Sit to and from Stand Contact Guard Assistance,1 Person Assistance,Use of Upper Extremities Equipment Transfer Assistive Device Gait Belt,Front Wheeled Walker Orthotic/Prosthetic Devices or Brace: No Transfers Transfer Destination Chair Transfer Technique ambulated w/ FWW Transfer Ability Level of Assist Standby Assistance,Contact Guard Assistance,1 Person Assistance,Use of Upper Extremities Comments Mobility Comments LR L SBA with use of bed rail, L SL>sit with use of bed rail , scoot to EOB SBA. SIt>stand CGA w/ FWW, SPT bed>chair CGA with fWW, cued for FWW repositioning fully back before reaching back, CGA descent sit in chair. Sit> stand CGA, progressed gait w/ FWW CGA> SBA outside door into hallway approx 20 ft, completed ascend/descend 1 PF step to assimulate 1 step enter home CGA- 5%A for balance and fWW safety positioning on step. Gait further into hallway approx 140 ft total and back to her room chair CGA> SBA with occasional cues for only BUE WB on FWW needed for LE support, decreased Moderate to CCG- min WB and reported made her back feel little better. Pt sBA decent to chair when returned to room. Pt had call light and all needs in reach before left. PATIENT REGISTRATION REP discussed with HERD TESTER and nurse progression ok to return home when medically cleared, not requiring CGT prior DC, pt stated her sister is able to help the little bit needed. Gait Assessment Gait Gait Assistance Required: Minimum Assistance Distance (Feet) 140 Able to Maintain Weight Bearing Status Yes During Gait Assistive Devices Assistive Device Gait Belt,Front Wheeled Walker Orthotic/Prosthetic Devices or Brace: No Gait Deviations General Gait Pattern Antalgic,Decreased Stride Length,Decreased Feet Clearance Factors Limiting Gait Function Factors Limiting Gait Function Decreased Activity Tolerance, Decreased Strength,Limited Range of Motion,Pain Comments Gait Comments see mobility comments Stair Climbing Assessment Evaluation Level of Assist On Stairs Contact Guard Assistance, Minimal Assistance,1 Person Assistance Devices Stair Climbing Assistive Devices Front Wheel Walker Technique/Endurance Stair Climbing Direction Ascend and Descend Stair Climbing Technique Step to Step Number of Steps Climbed 1 Stair Climbing Set # Repetitions (reps) 1 Comments Stair Climbing Comments 1 PF step w/ FWW, step to patterning, CG- 5% A for balance stability and FWW support required for safety 4 pts on/off step safely. PT-Balance Assessment Sitting Balance and Reactions Static Sitting Balance Ability Normal Dynamic Sitting Balance Ability Good Standing Balance and Reactions Static Standing Balance Ability Good Dynamic Standing Balance Ability Good Device Used FWW M5 PT-IP Objective Assessments Start: 11/09/21 11:42 Freq: NEEDED Status: Discharge Protocol: Document 11/09/21 09:30 AB (Rec: 11/09/21 11:54 AB [id number]) Orientation Orientation/Cognition Level of Alertness Alert Orientation Name,Situation Language Function Ability No Deficits Noted Safety Awareness Decreased Safety Awareness Memory Description Short Term Impaired Gross Range of Motion Lower Extremity ROM Assessment Within Functional Limits Strength Lower Extremity Strength Hip 4-/5 Knee 4+/5 Coordination Assessment Gross Coordination Gross Coordination WNL Sensation Assessment Sensation Gross Sensation WNL Muscle Tone Muscle Tone WNL Yes M6 PT-IP Treatment Start: 11/09/21 11:42 Freq: NEEDED Status: Discharge Protocol: Document 11/10/21 09:43 SP (Rec: 11/10/21 18:29 SP [id number]) Physical Therapy Treatment Education Education Provided Precautions,Safety Other Treatments Other Treatment Performed Good recall to precautions and maintaining throughout mobiltiy. M7 PT-IP Assessment and Plan Start: 11/09/21 11:42 Freq: NEEDED Status: Discharge Protocol: Document 11/10/21 09:43 SP (Rec: 11/10/21 18:29 SP [id number]) PT Summary Assessment and Plan Potential Rehabilitation Potential Fair Status of Condition at Evaluation Evolving Summary Impairments Pain,ROM,Strength,Balance, Coordination,Sensation,Tone, Cognition,Bed Mobility, Transfers,Gait,Activity Tolerance Progress Towards Goals Slow Progress due to Pain,Slow Progress due to Activity Tolerance Assessment Summary Pt improved in mobilitiy this morning. Bed mob SBA with bed rail support but states will be sleeping in antigravity chair at home initially. CGA during sit>stand, CG- SBA durign gait w/ FWW, CG- 5%A 1 PF step mgt w/ FWW. Pt is ok to return home with sister to assist her needed when medically cleared. Goals Bed Mobility Goal Independent Transfer Goal Independent,Front Wheeled Walker Gait Goal Independent,Front Wheel Walker Gait Distance 250 Other Goals up/down 1 step using FWW SBA Days to Meet Goals 5 Frequency of Treatment Frequency Of Treatment Twice a Day Treatment Plan Physical Therapy Treatment Plan Bed Mobility Training,Transfer Training,Gait Training, Therapeutic Exercise,Balance Retraining,Post Op Education, Discharge Planning,Hot or Cold Pack,Neuromuscular Re-ed, Coordination Retraining,Manual Therapy Other Recommendations and Next Treatment further distance gait, STS, Focus balance activities. Precautions Lumbar Precautions Log Roll,No Twisting,Limit Bending,Lifting Restriction of 10 lbs,Gait Belt above Incisional Area Recommendations To Nursing Amount of Assist Needed Standby Assistance,1 Person Assist Discharge Recommendations PT Discharge Recommendations Home with Assistance,Home Health Transportation Needs at Discharge Private Vehicle
--- NOTE | 2021-11-10 10:31 | P.DS_ITS ---
History of Present Illness History of Present Illness Date Patient Seen: 11/10/21 Time Patient Seen: 10:31 Chief complaint: Back pain Narrative: Patient's pain is moderate. Denies fever or chills. No nausea or vomiting. Discharge Providers Provider Date of admission: 11/08/21 10:59 Discharge Date: 11/10/21 Primary care physician: Kallie Araiza PA-C Consults: 11/08/21 18:44 Consult to Occupational Therapy Evaluate & Treat Comment: Physician Instructions: Evaluate and treat Consult to Physical Therapy Evaluate & Treat Comment: Physician Instructions: Evaluate and Treat Discharge provider: Elie Hoyt PA-C Summary Hospital Course Discharge Diagnosis: 1. L4-5, L5-S1 spinal stenosis with radiculopathy 2. L4-5, L5-S1 spondylosis with radiculopathy Hospital Course: 1. L4-5, L5-S1 Postero-lateral and posterior interbody fusion 2. L4-5, L5-S1 interbody cage placement. 3. L4-5, L5-S1 decompressive laminectomy with bilateral facetecomies 4. L4-5, L5-S1 Posterior segmental instrumentation 5. [place] of bone marrow from iliac crest 6. Utilization of microsurgical technique and operating microscope 7. Robotic assisted navigation surgery Same procedure as scheduled: Yes Indications: Patient has been having chronic back pain and worsening lumbar radiculopathy. Patient failed multiple conservative management with worsening pain weakness and numbness in her lower extremity.? Patient has been having difficulty performing activity of daily living.? After discussing risks benefits of treatment options, patient elected proceed with surgery. Surgeon: Sandra Holloway Stained Glass Window Designer: Elie Hoyt Click Yes if Unassisted: No Anesthesia Type: General Operative Notes Closure Type: primary Specimen(s): none sent Prosthetic devices, grafts, tissues, transplants, or devices: Globus CREO MIS screws, Rise cages Applied: catheter Estimated Blood Loss (mL): 100 Blood products transfused: none Patient admitted to the hospital for the above-mentioned procedure. Patient taken to operating room underwent lumbar fusion November 08, 2021. Patient back in her room recovering well as in stable condition. Patient will be discharged home today in stable condition. Exam Vital Signs (past 8 hours): - 11/10/21 05:53 11/10/21 07:37 Temperature 99.3 F 100.3 F H Pulse Rate 83 96 H Respiratory Rate 18 16 Blood Pressure 123/64 118/71 Pulse Oximetry 97 95 Oxygen Delivery Method Room Air Oxygen Flow Rate 0 Narrative Exam Narrative: 61-year-old female resting comfortably in bed in no apparent distress. Neurovascular status is intact bilateral lower extremities. Objective Labs Result Diagrams: 11/09/21 05:30 PFS Medical History Borderline high blood pressure COPD (chronic obstructive pulmonary disease) Fecal incontinence Lumbar disc disease with radiculopathy Right foot drop Sciatica Spinal stenosis Surgical History History of bilateral tubal ligation History of hysterectomy for benign disease Hx of appendectomy (~2016) Hx of cholecystectomy (05/2021) Social History household members: family Smoking Status: Former smoker alcohol intake: current Discharge Assessment & Plan Assessment and Plan Assessment: Patient progressing as expected status post lumbar fusion Plan of Treatment: Discharge home today in stable condition Discharge Plan Discharge Plan Patient Disposition: Home Discharge orders & Medications Prescriptions: New acetaminophen 325 mg Tablet 650 mg PO Q6HR PRN (Reason: Pain, Mild (1-3)) Qty: 60 0RF docusate sodium 100 mg Capsule 100 mg PO BID Qty: 20 0RF oxycodone 5 mg Tablet 10 mg PO Q3HR PRN (Reason: Pain, Severe (7-10)) Qty: 60 0RF hydroxyzine pamoate 25 mg Capsule 25 mg PO Q4HR PRN (Reason: Nausea And Vomiting) Qty: 30 0RF Continued tizanidine 4 mg capsule 4 mg PO TID PRN (Reason: Pain) 0RF Label Comments: muscle relaxer fluticasone propion-salmeterol [Wixela Inhub] 250-50 mcg/dose Blister With Device 1 inh INHALATION BID 0RF magnesium glycinate 100 mg Tablet 450 mg PO DAILY 0RF estradiol 10 mcg Tablet 10 mcg VAGINAL 2XW 0RF Discontinued diclofenac sodium 75 mg tablet,delayed release (DR/EC) 75 mg PO BID 0RF naproxen sodium [Aleve] 220 mg Capsule 440 mg PO DAILY PRN (Reason: Pain) 0RF Follow up/Referrals: Sandra Holloway MD [Physician] - (2 weeks) Kallie Araiza PA-C [Primary Care Provider] - Diet/Activity/Treatments Diet: Diet as Tolerated Activity: Limit bending, lifting, twisting Cold/Heat Therapy: Ice as needed Skin/Wound/Dressing Care Report to your healthcare provider any signs of infection, such as:: chills, fever, night sweats, increased pain, unusual drainage and unusual redness Dressing: Keep dressing clean and dry Visit Report/Discharge Packet Instructions: DI for Prescription Opioid Use, DI for Transforaminal Lumbar Interbody Fusion Stand Alone Forms: Surgery Discharge Discharge Data Primary Care Provider: Kallie Araiza Attending Provider: Sandra Holloway VTE Deep Vein Thrombosis/Pulmonary Embolism Present on Admission: No
[2021-11-10] MEDS: ACETAMINOPHEN 325 MG TABLET 650 MG PO (10:42)
[2021-11-10] MEDS: hydrOXYzine pamoate 25 MG CAPSULE PO (10:43)
--- NOTE | 2021-11-10 11:58 | OT.IP.EVAL ---
Current Diagnoses Foot drop, right foot (11/08/21) Spinal stenosis, lumbar region without neurogenic claudication (11/08/21) Surgery Performed Operation Date: 11/08/21 12:15 Actual Procedures p L4-5, L5-S1 TLIF with posterior instrumentation -Robot(Not Applicable) - Sandra Holloway MD Past Medical History (Last Reviewed 11/10/21 @ 10:33 by Elie Hoyt PA-C) Borderline high blood pressure COPD (chronic obstructive pulmonary disease) Fecal incontinence History of bilateral tubal ligation History of hysterectomy for benign disease Hx of appendectomy (~2016) Hx of cholecystectomy (05/2021) Lumbar disc disease with radiculopathy Right foot drop Sciatica Spinal stenosis Surgical History (Last Reviewed 11/10/21 @ 10:33 by Elie Hoyt PA-C) History of bilateral tubal ligation History of hysterectomy for benign disease Hx of appendectomy (~2016) Hx of cholecystectomy (05/2021) Occupational Therapy Inpatient Evaluation/Re-Eval M1 PT/OT-IP Prior Functional Status Start: 11/09/21 11:42 Freq: NEEDED Status: Active Protocol: Document 11/10/21 12:03 [facility] (Rec: 11/10/21 12:24 [facility] [id number]) Medical Review Prior Functional Status Medical History Reviewed Yes Communication able to make needs known Mobility and Gait pt stated that she is independent with all mobilities and ambulation without AD Activities of Daily Living and IADL's Pt states was independent with ADl needs. Social History Household Members family Living Arrangements House Number of Floors (Floors) One Floor Number of Stairs To Enter/Railing? 1 step to enter Home Environment Walk in Shower,Tub/Shower Home Equipment Front Wheel Walker,Raised Toilet Seat Without Armrests, Hand Held Shower Additional Social History Comment pt has her sister to assist her at home when needed but will not be able to assist her much if she needs physical assist. stated that her sister has CA and just had surgery and tx. pt has an adjustable bed but plans to sleep on her antigravity chair for now M2 OT-IP Current Condition Start: 11/10/21 12:03 Freq: Status: Active Protocol: Document 11/10/21 12:03 [facility] (Rec: 11/10/21 12:24 [facility] [id number]) Occupational Therapy Current Condition Current Condition Evaluation Date 11/10/21 Treatment Diagnosis S/p L4-5, L5-S1 TLIF Diagnosis Onset Date 11/08/21 Post Operative Precautions Lumbar Precautions Log Roll,No Twisting,Limit Bending,Lifting Restriction of 10 lbs,Gait Belt above Incisional Area M3 OT- IP Subjective and Pain Start: 11/10/21 12:03 Freq: Status: Active Protocol: Document 11/10/21 12:03 [facility] (Rec: 11/10/21 12:24 [facility] [id number]) OT- Subjective Occupational Therapy Visit Type Type Initial Evaluation Visit Start Time 11:20 Visit Stop Time 11:58 Total Visit Minutes 38 Occupational Therapy Visit Comments Patient Comments Pt wanting to shower. Patient/Caregiver Goals TO go home. OT Pain Assessment Pain When Pain Assessed During Mobility Pain Present Pain Present Pain Reported Location Lower Back Intensity 6 M4 OT- IP ADL's Start: 11/10/21 12:03 Freq: Status: Active Protocol: Document 11/10/21 12:03 [facility] (Rec: 11/10/21 12:24 [facility] [id number]) OT [id number] General Evaluation Self-Feeding Ability Independent OT ADL-Grooming General Evaluation Areas Needing Assistance Retrieving/Set-up of Grooming Items OT ADL-Oral Care General Eval Oral Care Ability Independent OT ADL-Dressing General Eval Upper Body Dressing Ability Independent Lower Body Dressing Ability Minimal Assistance Comments OT Dressing Comments Assist to get socks on over her feet. Pt able to comfortably cross her legs over for LB dressing needs, otherwise states her sister to assist. OT ADL-Toileting General Evaluation Toileting Ability Independent Comments OT Toileting Comments Pt able to safely follow back precautions for all toileting needs. Pt was considering ordering a toilet paper aid but able to reach appropriately at this time. OT ADL-Bathing Bathing Type Bathing Type Shower General Evaluation Bathing Ability Minimal Assistance Areas Needing Assistance Wash/Dry Back Devices Bathing Equipment Shower Chair with Arms Comments OT Bathing Comments Pt will benefit from a shower chair with arms to come to stand. M5 OT- IP IADL's Start: 11/10/21 12:03 Freq: Status: Active Protocol: Document 11/10/21 12:03 [facility] (Rec: 11/10/21 12:24 [facility] [id number]) OT-Instrumental Activities of Daily Living Home Safety Awareness Awareness of Need for Assistance at Home Good Awareness Ability to Problem Solve Emergency Able to Problem Solve Situations Home Safety Comments Pt's sister will be able to provide assist for all ADl and IADL needs. Pt is a little groggy yet from pain medications. M6 OT- IP Functional Cognition Start: 11/10/21 12:03 Freq: Status: Active Protocol: Document 11/10/21 12:03 [facility] (Rec: 11/10/21 12:24 [facility] [id number]) Cognitive Factors Limiting Selfcare Function Cognitive Ability Level of Alertness Alert Patient Orientation Name,Age,Birthday,Month,Date, Year,Day of Week,Place, Situation Attention Span Ability Capable of Focused Attention, Capable of Sustained Attention Ability to Follow Commands Able to Follow One Step Commands Safety Awareness Decreased Ability to Apply Precautions Cognitive Comments Cognitive Assessment Comments Pt needing reminders to follow her back precautions and at this a little impulsive and needing cues to slow down and take rest breaks as needed. OT- Vision and Hearing OT- Hearing Assessment OT- Hearing Assessment WFL OT- Vision Assessment Visual Acuity Glasses All The Time M7 OT- IP Mobility and Balance Start: 11/10/21 12:03 Freq: Status: Active Protocol: Document 11/10/21 12:03 [facility] (Rec: 11/10/21 12:24 [facility] [id number]) OT-Transfer Assessment Sit to and From Stand Sit to and from Stand Minimal Assistance Transfers Transfer Ability Standby Assistance Technique Transfer Destination Chair,Shower Stall,Toilet Transfer Technique Stand Step Pivot Devices Transfer Assistive Devices Gait Belt,Front Wheeled Walker Comments Mobility Comments SPIKE to stand from lower surfaces and CGA to step over threshold of the shower. Otherwise SBA with FWW. OT- Balance Assessment Sitting Balance and Reactions Static Sitting Balance Ability Normal Dynamic Sitting Balance Ability Good Standing Balance and Reactions Static Standing Balance Ability Good Dynamic Standing Balance Ability Fair M8 OT- IP Objective Assessments Start: 11/10/21 12:03 Freq: Status: Active Protocol: Document 11/10/21 12:03 [facility] (Rec: 11/10/21 12:24 [facility] [id number]) OT-Muscle Tone Assessment Muscle Tone WNL Yes M9 OT- IP Assessment and Plan Start: 11/10/21 12:03 Freq: Status: Active Protocol: Document 11/10/21 12:03 [facility] (Rec: 11/10/21 12:24 [facility] [id number]) OT Summary Assessment and Plan Potential Rehabilitation Potential Good Analytic Complexity at Evaluation Low Summary OT Impairments Pain,Functional Mobility, Dressing,Bathing,Shower Transfers Progress Towards Goals Progressing Toward Goals Assessment Summary Pt low complexity and main barriers are coming up to stand from lower surfaces, needing assist with socks, and needing reminders to incorporate her back precautions at all times as at times, pt is a little impulsive. Pt to go home with assist from her sister. Goals Grooming Goal Independent Dressing Goal Independent Toileting Goal Independent Bathing Goal Independent Toilet Transfer Goal Independent Shower Transfer Goal Independent Patient/Caregiver Education Goal Demonstrate Post-Op Precautions Days to Meet Goals 10 Frequency of Treatment Frequency Of Treatment Once a Day Treatment Plan OT Treatment Plan ADL Training,Functional Mobility,Patient/Family Education,Discharge Planning Discharge Recommendations OT Discharge Recommendations Home with Assistance Home Equipment Needs shower chair, marine diesel mechanic Transportation Needs at Discharge Private Vehicle
--- NOTE | 2021-11-10 13:13 | PC.NURSE ---
Pt is dressed and ready for discharge home with Sister. IV removed and dressing to back changed. She has voided twice since having her catheter removed. Went over d/c instructions with Pt - discussed d/c meds, time of last dose, reviewed stroke education, s/s of infection and when to call MD. Reminded Pt to drink plenty of fluids to prevent constipation or dehydration. Pt already has a follow up appointment made with Dr. Holloway. Reminded Pt to follow back precautions. Pt denied further questions and is ready to be taken out to pov via w/c by [employer] SPECIALIST when sister arrives to pick her up.
--- NOTE | 2021-11-10 13:45 | PC.NURSE ---
Pt out via w/c by NURSE CHARGE RN to POV with sister and all belongings
--- NOTE | 2021-11-10 14:15 | CM.DPC ---
DCP Discharge Home Per Ortho, pt medically stable to d/c home today and no identified barriers to discharge. Per PT/OT, recommending safe d/c home with sister assist via POV. Per RN, pt was able to void independently and ambulate and d/c instructions given and no identified concerns at this time and pt's sister arrived to provide transport home. Plan: Patient to d/c home today via sister POV and outpt follow up after d/c and no further SW needs at this time. MARY Rudd
== END 2021-11-10 13:46 | disposition home or self-care (01) ==
LOC: OR 10:59 → AC 10:59
PROVIDERS: Admitting Provider Orthopaedic Surgery Orthopaedic Surgery of the Spine; PCP Physician Assistant Medical; Referring Provider Physician Assistant Medical; Visit Provider Orthopaedic Surgery Orthopaedic Surgery of the Spine
PROC: (CPT 63047; principal; 2021-11-08 12:15)
DX: M48.061 Spinal stenosis, lumbar region without neurogenic claudication (principal); M54.16 Radiculopathy, lumbar region; M21.371 Foot drop, right foot; M41.9 Scoliosis, unspecified; J44.9 Chronic obstructive pulmonary disease, unspecified; I10 Essential (primary) hypertension; F32.9 Major depressive disorder, single episode, unspecified
CPT/HCPCS: 63047; 63048; 22633; 22634; 22853 ×2; 22842; 20939; 36415; 72100; 76000; 82962; 85014; 85018; 97116; 97162; 97165; 97530; 97535; C1776; G0378; C9290; J0171; J0330; J0690; J1100; J2250; J2270; J2274; J2405; J2704; J3010; J7613

== ENCOUNTER → 2022-10-24 12:57 | Outpatient (CLI) | payer OTHER, SELFPAY ==
[2021-11-08 19:38] VITALS: BMI 24.2
--- NOTE | 2022-10-24 | DI.CT.S_ITS ---
PROCEDURE: CT SHOULDER RIGHT WITHOUT CON INDICATIONS: RIGHT SHOULDER PAIN TECHNIQUE: Noncontrast 1-1.5 mm thick sections acquired from the acromioclavicular joint to the inferior scapula, with coronal and sagittal reformatting. COMPARISON: None. FINDINGS: Image quality: Excellent. There is moderate to severe osteoarthritic type degenerative change involving the glenohumeral joint. There is also mild to moderate AC joint degenerative change. I see no evidence for acute fracture or dislocation. A moderate size shoulder joint effusion is present. Soft tissues appear within normal limits. IMPRESSION: 1. Moderate to severe osteoarthritic type degenerative change involving the patient's right shoulder. 2. Moderate-sized right glenohumeral joint effusion. 3. Mild to moderate AC joint degenerative change. 4. No evidence for acute osseous abnormality. Dictated by: Guevara Mercedes M.D. on 10/24/2022 at 16:43 Approved by: Guevara Mercedes M.D. on 10/24/2022 at 17:10
== END ==
PROVIDERS: PCP Physician Assistant Medical; Referring Provider Orthopaedic Surgery; Visit Provider Orthopaedic Surgery
DX: M19.011 Primary osteoarthritis, right shoulder (principal); M25.511 Pain in right shoulder; M25.411 Effusion, right shoulder
CPT/HCPCS: 73200

== ENCOUNTER 2023-01-19 09:19 | Inpatient (IN) | payer OTHER, SELFPAY ==
[2021-11-08 19:38] VITALS: BMI 24.2
[2023-01-12 15:17] VITALS: BMI 25.8
[2023-01-19] VITALS (10 sets, daily range): BP systolic 104–162; BP diastolic 58–95; PULSE 71–96; RESP 14–18; TEMP 36.6–36.8; O2SAT 95–98; BMI 25.8
--- NOTE | 2023-01-19 06:00 | DI.RAD.S_ITS ---
PROCEDURE: XR SHOULDER RT 1V INDICATIONS: SHOULDER ARTHROPLASTY TECHNIQUE: 1 views of the shoulder were acquired. COMPARISON: None. FINDINGS: Bones: Total right shoulder arthroplasty in good position. Postprocedural soft tissue air Soft tissues: No suspicious soft tissue calcifications. IMPRESSION: Right total shoulder arthroplasty in good position Approved by: Tahir Marie M.D. on 01/19/2023 at 18:25
[2023-01-19] MEDS: CELECOXIB 200 MG CAPSULE PO (09:55)
[2023-01-19] MEDS: ACETAMINOPHEN 325 MG TABLET 975 MG PO (09:55)
[2023-01-19] MEDS: PREGABALIN 75 MG CAPSULE PO (09:56)
[2023-01-19] MEDS: LACTATED RINGERS 1,000 ML 42 ML IV (09:56)
[2023-01-19 10:05] LABS: COVID19 -Nasal RAPID Negative (Negative)
--- NOTE | 2023-01-19 10:35 | PM.HP.1 ---
History of Present Illness History of Present Illness Date Patient Seen: 01/19/23 Time Patient Seen: 10:35 Chief complaint: INPT Narrative: Mildred is a 62-year-old female with history of right shoulder osteoarthritis. She has completed a full course of conservative management and has failed thus far. In clinic we discussed operative treatment which would consist of a total anatomic versus reverse shoulder arthroplasty. The risks were gone over several times including in clinic and today at bedside. She is had no changes in her symptoms. No recent nausea, vomiting, diarrhea, fevers, chills or any other constitutional symptoms. Patient History Medical History Borderline high blood pressure COPD (chronic obstructive pulmonary disease) COVID-19 virus infection (03/2022) Fecal incontinence Lumbar disc disease with radiculopathy Right foot drop Sciatica Spinal stenosis Surgical History (Updated 12/12/22 @ 08:18 by Therese Walters RN) History of bilateral tubal ligation History of fusion of lumbar spine (11/08/21) History of hysterectomy for benign disease Hx of appendectomy (~2016) Hx of cholecystectomy (05/2021) Family & Social History Social History: household members family Prior Living Arrangements House Safety & Behavioral: Feels Safe in Current Yes Environment Been Physically Hurt or No Threatened By a Person Suicidal Ideation Description None Suicide Plan Description No Plan Tobacco & Substance use: Tobacco type e-cigarettes Smoking Status Former smoker alcohol intake current alcohol intake frequency a few times a week Substance Use Type marijuana Meds Home Medications and Allergies Home Medications Medication Instructions Recorded Confirmed Type hydroxyzine pamoate 25 mg capsule 25 mg PO BEDTIME PRN Pt uses for 12/12/22 01/19/23 History sleep lidocaine 5 % topical patch 1 patch topical DAILY 12/12/22 01/19/23 History Allergies Allergy/AdvReac Type Severity Reaction Status Date / Time hydromorphone [From Dilaudid] AdvReac Severe Nausea, Verified 01/19/23 09:50 vomiting Sulfa (Sulfonamide AdvReac Severe Yeast Verified 01/19/23 09:50 Antibiotics) infections Review of Systems Review of Systems ROS: Yes All systems reviewed with the patient and are negative except as otherwise documented Exam Vital Signs (past 8 hours): - 01/19/23 09:59 Temperature 98.1 F Pulse Rate 88 Respiratory Rate 18 Blood Pressure 153/95 H Pulse Oximetry 97 Narrative Exam Narrative: HEENT: Head atraumatic eyes anicteric moist mucous membranes Cardiovascular: Palpable peripheral pulses extremities are warm and well perfused Respiratory: Breathing comfortably on room air Psychiatric: Appropriate mood and affect Neuro: No acute deficits Musculoskeletal: Exam of the right shoulder demonstrates limited forward elevation to 95?, external rotation to 30?. Limited by stiffness and pain. Sensation intact to light touch in median, radial, ulnar nerve distributions. 2+ radial pulse and brisk capillary refill less than 2 seconds. Objective Labs Labs: Laboratory Results - last 24 hr 01/19/23 09:34 SARS-CoV-2 (PCR) Negative Assessment & Plan Assessment & Plan narrative: Assessment: 62-year-old female with right glenohumeral arthritis Plan: Plan to go forward with right anatomic versus reverse total shoulder arthroplasty. Risks and benefits of surgery were discussed again including the risk of infection, damage to internal structures, bleeding, nerve injury, instability, need for revision surgery, blood clots, anesthesia and . No guarantees were made regarding outcomes. Patient expressed understanding and accepted these risks and wished to go forward with surgery and consent was signed. Her right shoulder was marked with my initials. Time Spent With Patient Critical Care time: I spent a total of [] minutes of critical care time on this patient's care today; this time is exclusive of procedural time.
--- NOTE | 2023-01-19 10:56 | SUR.PREOP ---
Block start time [1100] . Monitoring initiated and maintained throughout procedure. Oxygen and medications given per anesthesiologist instructions. Patient remained stable throughout procedure, no adverse reactions noted. Block end time [ 1110].
[2023-01-19] MEDS: CEFAZOLIN 2 GM/100 ML PREMIX 100 ML IV (11:20)
[2023-01-19] MEDS: TRANEXAMIC ACID 1,000 MG VIAL 1000 MG INJ ×2 (11:25→12:59)
--- NOTE | 2023-01-19 11:46 | SUR.OPER ---
Beach chair with Schlein shoulder positioner. Lower body on padded OR bed. Head in foam padded head cradle, secured with straps. Non-operative arm secured <90 degrees abduction. Pillow under knees. Safety belt at thigh. Cloth tape over blanket over lower legs.
[2023-01-19] MEDS: BUPIVACAINE 0.25% (PF) VIAL 10 ML SUBCUT (12:00)
--- NOTE | 2023-01-19 13:05 | PM.OP.1 ---
Operative Date/Time/Diagnoses Date of procedure: 01/19/23 Time of procedure: 13:05 Pre-op diagnosis: Right glenohumeral arthritis Post-op diagnosis: same Procedure & Clinicians Procedure: Right reverse total shoulder arthroplasty Same procedure as scheduled: Yes Indications: Indications: This is a 62 yo female who has right glenohumeral arthritis. Symptoms have been present for years, insidious onset. Patient has failed conservative therapy including injections, physical therapy, anti-inflammatories and activity modification. After extensive discussion in clinic, they wished to go forward with surgery. Risks and benefits were described including the risk of infection, bleeding, damage to internal structures including nerves. We also discussed the risk of failure of surgery and the need for revision surgery as well as the risk of anesthesia. The patient expressed understanding with these risks and wished to go forward with surgery. Surgeon: Dmitriy Zarate Face And Fill Packer: Trudy Fitzgerald Click Yes if Unassisted: No Anesthesia Type: General Operative Notes Findings: Findings: Osteoarthritis of the glenoid and humeral head as well as a defient rotator cuff as noted on preoperative imaging and under direct visualization Closure Type: primary Specimen(s): none sent Prosthetic devices, grafts, tissues, transplants, or devices: Tornier implants Base plate: 25 mm, +3 mm offset Glenosphere: Standard 36 mm Stem: Perform 3+ Poly: +0 concentric Estimated Blood Loss (mL): 50 Blood products transfused: none Procedure in detail: Operative note: Patient was seen in the preoperative holding unit. The correct right shoulder was identified and marked with my initials. Again we discussed the risks and benefits of surgery and they wished to go forward with surgery. The patient was brought back to the operating room and placed supine on the operating table. She underwent smooth endotracheal intubation. All prominences were padded and they were placed into the beach chair position. Intravenous antibiotics were given. The right shoulder was then prepped with the standard sterile preparation and draping. A time-out was then performed in my initials were again identified on the correct shoulder. 1 g of IV tranexamic acid was given. A standard deltopectoral incision was made. Skin flaps were made. The cephalic vein was identified and retracted laterally. This was protected throughout the remainder of the case. Sharp dissection was made along the deltoid, subacromial and subcoracoid space to release adhesions. The conjoined tendon was identified and the axillary nerve was palpated and continuous using the tug test. It was protected throughout the remainder of the case. A brown retractor was placed underneath the deltoid muscle and a darach retractor underneath the conjoint tendon. The anterior circumflex artery and associated veins on the lower border of the subscapularis were identified and tied off using 0-Vicryl. The biceps tendon was identified in the bicipital groove. This was released from its sheath, and taken from its origin on the glenoid and tied into the pectoralis tendon for a solid tenodesis. We then began a subscapularis peel. The subscapularis was tagged with an Ethibond suture. A 360 degree circumferential release of the subscapularis was performed with protection of the axillary nerve. The coracohumeral ligament was released at the base of the coracoid. The coracoacromial ligament was left intact. The shoulder was then dislocated. Osteophytes were removed using combination of rongeur and osteotome. The rotator cuff was noted to be insufficient. An intramedullary guide was used set at version of 30?. Using an oscillating saw a conservative humeral head cut was made. Impaction reamers were reamed up to a size 3 stem set at angle 135 (standard). A neck protector was placed. Attention was then turned to the glenoid. After retracting the humeral head posteriorly a circumferential release was performed of the capsule with protection of the axillary nerve. The labrum was then released starting at the biceps anchor and going around the rim a small amount of triceps was released from the inferior glenoid. A center guide pin was then placed using the guide, followed by Reamer. After adequate cartilage was removed the center drill hole was drilled and measured. The base plate was then implanted and screwed into place. The superior drill hole was drilled and filled in a nonlocking fashion, followed by the inferior and anterior holes in locking fashion. A 36 standard glenosphere was then selected and screwed into place onto the base plate. Turning back to the humerus, the humeral head was delivered and trialed with a size 0, concentric polyethylene. The arm was taken through range of motion and this was felt to be stable. The trial was then removed and a dilute Betadine wash was then performed with 1 L of sterile saline. Before placing the final implant, drill holes were made in the bicipital groove for the subscapularis repair, and sutures were passed through the drill holes. The final stem with high offset tray was then impacted into the humerus. The shoulder was then reduced and again brought through range of motion and was felt to be stable. The interval was then closed using 0-Vicryl. The subscapularis was then repaired using a modified racking hitch with niece loupes. The deltopectoral interval was then closed with #2 Ethibond. The skin was closed with 2-0 PDS and brant followed by Aquacel dressing. Patient was awoken from anesthesia and brought back to the postoperative recovery unit without issue. They were placed into a sling. Assisting participation: This operation could not have been safely performed (without compromising the technical results or length of the procedure) without the assistance of a skilled surgical specialist. The surgical specialist was medically necessary for proper positioning, retraction and manipulation of instruments, proper exposure, graft prep, and manipulation of tissue. Complications: none Post-operative Condition: stable Disposition: PACU Plan for aftercare: Postoperative instructions: Sling to remain on for 6 weeks. No external rotation past neutral for 6 weeks. Okay for him to come off her shower. Okay to shower over the Aquacel dressing. If any water gets underneath the dressing, remove the dressing. First postoperative visit in 2 weeks.
[2023-01-19] MEDS: OXYCODONE IR 5 MG TABLET PO ×2 (13:50→14:17)
[2023-01-19] MEDS: ONDANSETRON 4 MG/2 ML INJ IV (13:51)
[2023-01-19] MEDS: ACETAMINOPHEN IV 1,000 MG/100 ML VIAL 400 MG IV (14:41)
[2023-01-19] MEDS: hydrOXYzine 50 MG/ML INJ 25 MG IM (14:43)
== END 2023-01-19 15:30 | disposition home or self-care (01) | DRG 483 ==
PROVIDERS: Admitting Provider Orthopaedic Surgery; PCP Physician Assistant Medical; Referring Provider Orthopaedic Surgery; Visit Provider Orthopaedic Surgery
PROC: 0RRJ00Z Replacement of Right Shoulder Joint with Reverse Ball and Socket Synthetic Substitute, Open Approach (ICD-10-PCS; CPT 23472; principal; 2023-01-19 11:15)
DX: M19.011 Primary osteoarthritis, right shoulder (principal); Z87.891 Personal history of nicotine dependence; Z20.822 Contact with and (suspected) exposure to COVID-19
CPT/HCPCS: 64450; 73020; 87635; C1776; C9803; J0131; J0330; J0690; J1100; J1885; J2250; J2405; J2704; J3010; J3410; J3490

== ENCOUNTER → 2023-07-10 09:20 | Outpatient (CLI) | payer OTHER, SELFPAY ==
[2021-11-08 19:38] VITALS: BMI 24.2
--- NOTE | 2023-07-10 09:30 | DI.MRI.S_ITS ---
PROCEDURE: MR SHOULDER LT WO CON INDICATIONS: Primary osteoarthritis, left shoulder TECHNIQUE: Noncontrast oblique coronal T2 fast spin echo with fat saturation, oblique sagittal T1 spin echo and T2 fast spin echo with fat saturation, axial T1 spin echo and T2 fast spin echo with fat saturation through the shoulder. COMPARISON: [facility], MR, MR SHOULDER LT WO CON, 02/05/2021, 19:36. FINDINGS: Image quality: Excellent. Rotator cuff: There is progressive, full-thickness tearing of the mid/posterior supraspinatus tendon at the humeral insertion site extending to the musculotendinous junction, measuring roughly 15 mm anteroposterior. Low-grade intrasubstance and articular surface tears of the anterior infraspinatus tendon extending to the musculotendinous junction. Low-grade articular surface tearing of the anterior, mid, and posterior infraspinatus tendon at the humeral insertion site extending the musculotendinous junction, as before. Subscapularis and teres minor tendons are intact. Bones and bursae: No bone marrow contusions or fractures. Subchondral cyst formation within the inferior glenoid. Moderate glenohumeral and acromioclavicular joint degeneration. The acromion demonstrates conventional anatomy, without an os acromiale. No pathologic subacromial-subdeltoid or subcoracoid bursal fluid is present. Capsule and soft tissues: There is undercutting of the posterosuperior labrum. The long head of the biceps tendon demonstrates normal location and morphology. The rotator interval appears normal, without fibrosis. The coracohumeral ligament is normal in thickness. IMPRESSION: 1. Acromioclavicular and glenohumeral joint osteoarthritis. 2. Progressive , full-thickness tearing of the supraspinatus tendon. 3. Low-grade tearing of the infraspinatus tendon. 4. Glenoid labral tearing. Dictated by: Bib Segundo M.D. on 07/10/2023 at 11:40 Approved by: Bib Segundo M.D. on 07/10/2023 at 11:43
== END ==
PROVIDERS: PCP Physician Assistant Medical; Referring Provider Orthopaedic Surgery; Visit Provider Orthopaedic Surgery
DX: M19.012 Primary osteoarthritis, left shoulder (principal); M75.122 Complete rotator cuff tear or rupture of left shoulder, not specified as traumatic; S43.492A Other sprain of left shoulder joint, initial encounter
CPT/HCPCS: 73221